=== PATIENT | female | born 1990 | race Caucasian/White ===

== ENCOUNTER 2018-08-31 19:11 | Emergency (ER) | payer BC ==
[2018-08-31] MEDS: IBUPROFEN 800 MG TAB PO (21:30)
[2018-08-31] MEDS: LIDOCAINE/MYLANTA 40 ML BTL PO (22:06)
== END 2018-08-31 23:15 | disposition home or self-care (01) ==
LOC: E/R 19:11
DX: R07.9 Chest pain, unspecified (principal)
CPT/HCPCS: 71045; 81025; 93005; 99284-25

== ENCOUNTER 2018-11-04 09:16 | Emergency (ER) | payer BC ==
[2018-11-04] MEDS: SOD CHLORIDE 0.9% 1,000 ML IV (11:55)
[2018-11-04] MEDS: DIPHENHYDRAMINE 50 MG INJ IV (11:55)
[2018-11-04] MEDS: ONDANSETRON 4 MG INJ IV (11:55)
[2018-11-04] MEDS: KETOROLAC 30 MG INJ IM (11:56)
== END 2018-11-04 14:07 | disposition home or self-care (01) ==
LOC: FTE 09:16
DX: F32.9 Major depressive disorder, single episode, unspecified (principal); R51 Headache; F41.9 Anxiety disorder, unspecified
CPT/HCPCS: 81025; 96361; 96372; 96374; 96375; 99284-25